=== PATIENT | female | born 1950 | race Caucasian/White ===

== ENCOUNTER 2022-10-20 09:03 | Emergency (ER) | payer OTHER, MEDICARE ==
[2022-10-20 09:12] VITALS: BP 125/85; PULSE 68; RESP 15; TEMP 98.3; BMI 20.6
== END 2022-10-20 12:19 | disposition home or self-care (01) ==
LOC: FER 09:03
DX: R22.41 Localized swelling, mass and lump, right lower limb (principal); M79.661 Pain in right lower leg
CPT/HCPCS: 93971-TC; 99284-25